=== PATIENT | male | born 1990 ===

== ENCOUNTER 2018-04-23 00:05 | Emergency (ER) | payer SELFPAY ==
[~2018-04-23] VITALS: Ht 190.5 cm; Wt 90.7 kg
[2018-04-23] MEDS ORDERED: ALBUTEROL SULFATE 2.5 MG/3 ML NEBU NEB ONE (00:15)
[2018-04-23] MEDS ORDERED: predniSONE 20 MG TABLET PO ONE (00:15)
[2018-04-23] MEDS ORDERED: IPRATROPIUM BROMIDE 0.5 MG/2.5 ML NEBU NEB ONE (00:15)
[2018-04-23] MEDS ORDERED: predniSONE 50 MG TABLET ONE (00:18)
[2018-04-23] MEDS ORDERED: predniSONE 10 MG TABLET ONE (00:18)
[2018-04-23] MEDS ORDERED: ALBUTEROL SULFATE 2.5 MG/3 ML NEBU ONE (00:20)
[2018-04-23] MEDS ORDERED: IPRATROPIUM BROMIDE 0.5 MG/2.5 ML NEBU ONE (00:20)
--- NOTE | 2018-04-23 00:20 | NUR ---
PT A/OX4, RESPONSIVE TO VERBAL AND TACTILE STIMULI. PT SELF-AMBULATED WITHOUT DIFFICULTY. PT C/O SOB X 4 DAYS, STATES HE RAN OUT OF HIS ALBUTEROL INHALER FOR 3 DAYS. VSS. DENIES PAIN, C/P, DIZZINESS. WHEEZING IN ALL LUNG COSTA, CAP REFILL < 3 SECS, SPO2 97%. SECONDARY COMPLAINT: N/V X 2 SINCE 0600 04/22/18.
--- NOTE | 2018-04-23 00:41 | NUR ---
Patient discharged to home in stable conditon. Written and verbal after care instructions given. Patient verbalizes understanding of instructions. PT D/C W/ PRESCRIPTIONS. ALL BELONGINGS W/ PT. PT SELF-AMBULATED WITHOUT DIFFICULTY.
[2018-04-23 00:43] VITALS: BP 128/76
== END 2018-04-23 00:45 | disposition home or self-care (01) ==
LOC: ER 00:09
DX: J98.01 Acute bronchospasm (principal); J45.909 Unspecified asthma, uncomplicated; F17.200 Nicotine dependence, unspecified, uncomplicated; Z91.048 Other nonmedicinal substance allergy status
CPT/HCPCS: 94640; 99283; J7512 ×2; A4663; J3590